=== PATIENT | female | born 1955 | race Two or more races ===

== ENCOUNTER → 2018-02-25 | Outpatient (CLI) | payer OTHER ==
[~2018-02-25] MED LIST: LEVSOD125 PO; PANT40 PO; VITAMIN D PO
[2018-02-25 09:20] LABS: Source, Urine Clean Catch
[2018-02-25 13:05] LABS: Bilirubin, Urine Neg (Neg); Blood, Urine 4+ (Neg); Glucose Qualitative, Urine Neg (Neg); Ketones, Urine Neg (Neg); Leukocyte Esterase, Urine Neg (Neg); Nitrite, Urine Neg (Neg); Protein, Urine Neg (Neg); Urobilinogen, Urine NORM (Normal)
[2018-02-25 13:18] LABS: Appearance, Urine Clear (Clear); Color, Urine Yellow (P-Yellow); White Blood Cells, Urine Not Seen /hpf (0-5)
[2018-02-25 13:19] LABS: Squamous Epithelial Cells Few /hpf (Few)
[2018-02-25 14:11] LABS: Candida species (DNA Probe) Negative (NEGATIVE); G. vaginalis (DNA Probe) Negative (NEGATIVE); T. vaginalis (DNA Probe) Negative (NEGATIVE)
== END | disposition home or self-care (01) ==
LOC: LAB 09:18 → LAB SHORT 09:18
PROVIDERS: Nurse Practitioner Obstetrics & Gynecology
DX: R82.90 Unspecified abnormal findings in urine (principal); N76.0 Acute vaginitis
CPT/HCPCS: 81001; 87480; 87510; 87660

== ENCOUNTER → 2018-05-06 | Outpatient (CLI) | payer OTHER ==
[2018-05-06 18:56] LABS: Bilirubin, Urine Neg (Neg); Blood, Urine 4+ (Neg); Glucose Qualitative, Urine Neg (Neg); Ketones, Urine Neg (Neg); Leukocyte Esterase, Urine Neg (Neg); Nitrite, Urine Neg (Neg); Protein, Urine Neg (Neg); Urobilinogen, Urine NORM (Normal)
[2018-05-06 18:59] LABS: Appearance, Urine Clear (Clear); Color, Urine Yellow (P-Yellow)
[2018-05-06 19:01] LABS: Bacteria Mod /hpf; Squamous Epithelial Cells Not Seen /hpf (Few); White Blood Cells, Urine 0-2 /hpf (0-5)
== END ==
LOC: LAB SHORT 18:29 → LAB 18:29
PROVIDERS: Nurse Practitioner Obstetrics & Gynecology
DX: R31.9 Hematuria, unspecified (principal)
CPT/HCPCS: 81001; 87086

== ENCOUNTER → 2018-05-15 | Outpatient (CLI) | payer OTHER | END | disposition home or self-care (01) | LOC: LAB SHORT 15:03 → LAB 15:03 | DX: R31.21 Asymptomatic microscopic hematuria (principal) | CPT/HCPCS: 87086; 87147 ==

== ENCOUNTER 2021-09-15 07:53 | Day surgery (SDC) | payer OTHER ==
[~2021-09-15] VITALS: Ht 152.4 cm; Wt 56.4 kg
[~2021-09-15 07:53] MED LIST changes: +Lovastatin10 MG PO
== END 2021-09-15 09:45 | disposition home or self-care (01) ==
LOC: ORSCSDS 07:53
PROVIDERS: Surgery
PROC: 0DJD8ZZ Inspection of Lower Intestinal Tract, Via Natural or Artificial Opening Endoscopic (ICD-10-PCS; principal; 2021-09-15 09:00)
DX: Z12.11 Encounter for screening for malignant neoplasm of colon (principal); E03.9 Hypothyroidism, unspecified; I10 Essential (primary) hypertension; E78.5 Hyperlipidemia, unspecified; R73.03 Prediabetes; Z79.899 Other long term (current) drug therapy
CPT/HCPCS: J2704; J7120